=== PATIENT | female | born 1995 | race Caucasian/White ===

== ENCOUNTER 2020-01-30 07:33 | Outpatient (CLI) | payer OTHER ==
--- NOTE | 2020-01-30 08:46 | ULT ---
PELVIC ULTRASOUND INCLUDING TRANSABDOMINAL AND TRANSVAGINAL AND VASCULAR DUPLEX WITH COLOR AND SPECTR AL DOPPLER IMAGING: HISTORY: Pelvic pain, heavy periods. FINDINGS: Uterus measures 7.6 x 5 x 3.7 cm. The endometrium is 1 cm in thickness. Right ovary 2.3 x 2.3 x 1.3 cm. Left ovary 2.0 x 2.6 x 1.0 cm. No focal uterine masses. No abnormal fluid collection. IMPRESSION: Unremarkable pelvic ultrasound. POS: OFF
== END 2020-01-30 07:34 | disposition home or self-care (01) ==
LOC: BICULT 07:33
PROVIDERS: ATTEND Family Medicine
DX: N92.1 Excessive and frequent menstruation with irregular cycle (principal)
CPT/HCPCS: 76856